=== PATIENT | male | born 1955 | race American Indian/Alaskan Native ===

== ENCOUNTER 2020-11-11 06:13 | Observation (INO) | payer OTHER ==
--- NOTE | 2020-11-05 13:38 | Anesthesia Consultation ---
Anesthesia Consult and Med Hx Date of service: 11/11/20 - Airway Anesthetic Teeth Evaluation: Dentures, Edentulous ROM Head & Neck: Adequate Mental/Hyoid Distance: Adequate Mallampati Class: Class II Intubation Access Assessment: Good - Pre-Operative Health Status ASA Pre-Surgery Classification: ASA2 Proposed Anesthetic Plan: General - Pulmonary Hx Smoking: Yes ( TEENAGER ONLY) Hx Asthma: No Hx Respiratory Symptoms: No (+2FS) COPD: No Hx Pneumonia: No - Cardiovascular System Hx Hypertension: No - Central Nervous System Hx Seizures: No Hx Psychiatric Problems: No - Gastrointestinal Hx Gastroesophageal Reflux Disease: No - Endocrine Hx End Stage Renal Disease: No Hx Liver Disease: No Hx Non-Insulin Dependent Diabetes: No Hx Thyroid Disease: No - Hematic Hx Sickle Cell Disease: No - Other Systems Hx Cancer: Yes (Prostatectomy 2012) Hx Obesity: No
[2020-11-05 13:53] LABS: Basophils % (Auto) 0.8 % (0.0-1.8); Eosinophils # (Auto) 0.2 K/mm3 (0.0-0.4); Eosinophils % (Auto) 4.2 % (0.0-4.3); Lymphocytes # (Auto) 1.6 K/mm3 (1.2-5.4); Mean Corpuscular HGB Conc 35 % (32-34); Mean Corpuscular Volume 91 fl (84-94); Monocytes # (Auto) 0.3 K/mm3 (0.0-0.8); Monocytes % (Auto) 6.8 % (0.0-7.3); Platelet Count 320 K/mm3 (140-440); Red Cell Distribution Width 13.7 % (13.2-15.2)
[2020-11-05 14:00] LABS: Hematocrit 51.6 % (35.5-45.6); Hemoglobin 18.2 gm/dl (11.8-15.2)
[2020-11-05 14:12] LABS: Alanine Aminotransferase 17 units/L (7-56); Albumin 4.2 g/dL (3.9-5); BUN/Creatinine Ratio 8; Blood Urea Nitrogen 8 mg/dL (9-20); Calcium 9.5 mg/dL (8.4-10.2); Hemolysis Index 32
[~2020-11-11 06:13] MED LIST: ACETAMINOPHEN 500 MG TAB PO NR; BACTERIOSTATIC SODIUM CHLORIDE 0.9% 30 ML VIAL INFILTRATI ONE; CELECOXIB 200 MG CAP PO NR; GABAPENTIN 300 MG CAP PO NR; MAGNESIUM OXIDE 400 MG TAB PO NR; MIDAZOLAM 2 MG/2 ML INJ IV NR
[2020-11-11] MEDS: LACTATED RINGERS 1,000 ML IV SCH ×3 (06:35→22:24)
[2020-11-11] MEDS ORDERED: GENTAMICIN 40 MG/ML VIAL 2 ML ONE (07:06)
[2020-11-11] MEDS ORDERED: rifAMPin 600 MG VIAL ONE (07:07)
[2020-11-11] MEDS ORDERED: SODIUM CHLORIDE 0.9% 500 ML 500 ML ONE (07:07)
[2020-11-11] MEDS ORDERED: SODIUM CHLORIDE 0.9% 100 ML ONE (07:07)
[2020-11-11] MEDS ORDERED: NEOMY 40 MG/POLYMYXIN B 200,000 UNITS/ML (GU) AMPULE IR ONE ×3 (07:07→09:00)
[2020-11-11] MEDS ORDERED: SODIUM CHLORIDE P/F VIAL 10 ML 20 ML ONE (07:10)
[2020-11-11] MEDS ORDERED: BUPIVACAINE/PF (0.5%) 5 MG/1 ML 30 ML VIAL INFILTRATI ONE ×2 (07:10→08:59)
[2020-11-11] MEDS ORDERED: HYDROmorphone 1 MG/1 ML INJ ONE (07:23)
[2020-11-11] MEDS ORDERED: LIDOCAINE MPF (2%) 20 MG/1 ML VIAL 5 ML ONE (07:24)
[2020-11-11] MEDS ORDERED: propofoL 200 MG/20 ML VIAL IV ONE (07:24)
--- NOTE | 2020-11-11 07:26 | Anesthesia Day of Surgery ---
Anesthesia Day of Surgery - Day of Surgery Patient Examined: Yes Patient H&P Reviewed: Yes Patient is NPO: Yes
[2020-11-11] MEDS ORDERED: GENTAMICIN/NS 80 MG/100 ML 100 ML IV SCH (07:30)
[2020-11-11] MEDS ORDERED: VANCOMYCIN/NS 1 GM/250 ML 1 GM/250 ML BAG IV NR (07:30)
[2020-11-11] MEDS ORDERED: HYDROmorphone 1 MG/1 ML INJ IV PRN (08:00)
[2020-11-11] MEDS ORDERED: ONDANSETRON 4 MG/2 ML INJ IV PRN (08:00)
[2020-11-11] MEDS ORDERED: SODIUM CHLORIDE 0.9% IRR 1,500 ML BOTTLE IR ONE (08:57)
[2020-11-11] MEDS ORDERED: SODIUM CHLORIDE 0.9% 100 ML IVPB IV ONE (08:58)
[2020-11-11] MEDS ORDERED: SODIUM CHLORIDE 0.9% 500 ML IVPB IRRIGATION ONE (08:58)
[2020-11-11] MEDS ORDERED: rifAMPin 600 MG VIAL IV ONE (08:59)
[2020-11-11] MEDS ORDERED: GENTAMICIN 40 MG/ML VIAL 2 ML IV ONE (09:23)
[2020-11-11] MEDS ORDERED: ONDANSETRON 4 MG/2 ML INJ ONE (09:48)
[2020-11-11] MEDS ORDERED: LACTATED RINGERS 1,000 ML ONE (09:48)
[2020-11-11] MEDS ORDERED: KETOROLAC 30 MG/1 ML INJ ONE (09:48)
--- NOTE | 2020-11-11 09:49 | Short Stay Summary ---
Short Stay Documentation Date of service: 11/11/20 - History H&P: obtained from office - Allergies and Medications Current Medications: Allergies No Known Allergies Allergy (Unverified 11/04/20 17:36) Home Medications Medication Instructions Recorded Confirmed Last Taken Type No Known Home Medications [No 09/21/13 11/04/20 Unknown History Reported Home Medications] Active Medications Acetaminophen (Acetaminophen 500 Mg Tab) 1,000 mg PO ONCE NR Stop: 11/11/20 20:00 Last Admin: 11/11/20 06:35 Dose: 1,000 mg Documented by: Celecoxib (Celecoxib 200 Mg Cap) 400 mg PO PREOP NR Stop: 11/11/20 20:00 Last Admin: 11/11/20 06:35 Dose: 400 mg Documented by: Gabapentin (Gabapentin 300 Mg Cap) 300 mg PO PREOP NR Stop: 11/11/20 20:00 Last Admin: 11/11/20 06:35 Dose: 300 mg Documented by: Hydromorphone HCl (Hydromorphone 1 Mg/1 Ml Inj) 0.5 mg IV Q10MIN PRN PRN Reason: Pain , Severe (7-10) Stop: 11/11/20 17:00 Lactated Ringer's (Lactated Ringers) 1,000 mls @ 125 mls/hr IV DIRECT JOSUE Last Admin: 11/11/20 06:35 Dose: 125 mls/hr Documented by: Vancomycin HCl (Vancomycin/Ns 1 Gm/250 Ml) 1 gm in 250 mls @ 167.007 mls/hr IV PREOP NR; Protocol Stop: 11/11/20 16:00 Last Admin: 11/11/20 07:25 Dose: 167.007 mls/hr Documented by: Gentamicin Sulfate/Sodium Chloride (Gentamicin/Ns 80 Mg/100 Ml) 100 mls @ 200 mls/hr IV ONCE JOSUE; Protocol Stop: 11/11/20 15:00 Magnesium Oxide (Magnesium Oxide 400 Mg Tab) 400 mg PO ONCE NR Stop: 11/11/20 20:00 Last Admin: 11/11/20 06:35 Dose: 400 mg Documented by: Midazolam HCl (Midazolam 2 Mg/2 Ml Inj) 2 mg IV PREOP NR Stop: 11/11/20 23:59 Last Admin: 11/11/20 07:43 Dose: 2 mg Documented by: Ondansetron HCl (Ondansetron 4 Mg/2 Ml Inj) 4 mg IV ONCE PRN PRN Reason: Nausea And Vomiting Stop: 11/11/20 17:00 - Brief post op/procedure progress note Date of procedure: 11/11/20 Pre-op diagnosis: ed Post-op diagnosis: same Procedure: ipp (coloplast 22cm), scrotalasty Anesthesia: GETA Surgeon: VAL CASTILLO Estimated blood loss: minimal Pathology: list (skin) Specimen disposition: to lab Condition: stable - Hospital course Hospital course: post op info on chart bactrim & norco on chart schumacher removed - Disposition Condition at discharge: Stable Short Stay Discharge Plan Follow up with: MARKY BRADSHAW MD [Primary Care Provider] - 7 Days
[2020-11-11] MEDS ORDERED: NALOXONE 0.4 MG/1 ML INJ IV PRN (10:00)
[2020-11-11] MEDS ORDERED: HYDROcodone/ACETAMINOPHEN 5-325 MG TAB PO PRN (10:00)
--- NOTE | 2020-11-11 11:00 | Operative Report ---
PREOPERATIVE DIAGNOSIS: Erectile dysfunction. POSTOPERATIVE DIAGNOSIS: Erectile dysfunction, redundant scrotal skin. PROCEDURES: 1. Insertion of inflatable penile prosthesis (Coloplast Titan 22 cm). 2. Pharmacologic injection of corporal bodies. 3. Scrotoplasty. SURGEON: Lalo Schmidt MD GLOST KILN OPERATOR: Senia Cabrera. ANESTHESIA: General. ESTIMATED BLOOD LOSS: Minimal. FLUIDS: Crystalloid. COMPLICATIONS: No complications. INDICATIONS: This patient is a 65-year-old gentleman with a history of prostate cancer in the remote past, status post robotic prostatectomy. He has done well except for persistent erectile dysfunction, despite medical management. He reviewed the literature and wants to proceed with implant. Risks, benefits, and complications were explained. DESCRIPTION OF PROCEDURE: The patient was taken to the operative suite, placed in a supine position. After adequate general anesthesia, he was prepped and draped in a sterile fashion. Catalan catheter was placed on the operative field. A 60 mL of 0.25% Marcaine was injected into the corporal body. No plaque. Mild curvature to the left. Penoscrotal incision was made with Bovie. Sharp dissection was taken down to the corporal bodies. Metal [place] retractor was used for exposure. A 2-0 Vicryl was placed in the corporal bodies. Corporotomies were made bilaterally. Gentle dilation with the Amarilys and measurements were taken for a total of 22 cm bilaterally, therefore a 22 cm Titan implant was used with 125 mL reservoir. [place] was prepped, placed in the retropubic space via the right external ring. A 100 mL was placed in the reservoir. The device was prepped as well as did an irrigation and placed into the corporal bodies without difficulty. These corporotomies were closed over the cylinders using 2-0 Vicryl in a running fashion. Adequate seating could be appreciated. Cycling of the cylinders revealed an excellent cosmetic appearance. The reservoir was connected to the cylinders with the quick click connection system, cycled again adequate erection. Pump was placed in the dependent portion of the scrotum. 2-0 Vicryl was used to secure the pump in a dependent portion using a pursestring stitch followed by closing the dartos layer with 2-0 Vicryl in a running fashion. The dog ears were trimmed on the skin and therefore scrotoplasty was performed. Skin was closed with 3-0 Vicryl in interrupted fashion. Collodion, Xeroform gauze, and mummy wrap was placed. The patient tolerated the procedure well and was extubated and taken to recovery room. Senia Cabrera was present throughout the procedure to assist at the bedside. JOB# [id number] [facility]
--- NOTE | 2020-11-11 12:10 | Post Anesthesia Evaluation ---
- Post Anesthesia Evaluation Patient Participated: Yes Airway Patent: Yes Stable Respiratory Function: Yes Nausea/Vomiting: No Temp > 96.8F: Yes Pain Manageable: Yes Adequeate Hydration: Yes Anesthesia Complications: No
[2020-11-11] MEDS: MORPHINE 2 MG/1 ML INJ IV PRN ×3 (13:57→22:15)
[2020-11-11] MEDS ORDERED: ZOLPIDEM 5 MG TAB PO PRN (22:00)
[2020-11-12] MEDS: MORPHINE 2 MG/1 ML INJ IV PRN ×3 (02:08→12:25)
[2020-11-12] MEDS: LACTATED RINGERS 1,000 ML IV SCH (05:56)
[2020-11-12 07:55] VITALS: BP 123/79
== END 2020-11-12 16:22 | disposition home or self-care (01) ==
LOC: OR 06:13 → 3B-SURG 09:49
PROVIDERS: ADMIT Urology; ATTEND Urology
DX: N52.9 Male erectile dysfunction, unspecified (principal)
CPT/HCPCS: 36415; 54401; 55180; 80053; 85025; 88302; 96361; 96365; 96367; 96375; 96376; C1813; G0378; J1170; J1580; J1885; J1956; J2250; J2270; J2405; J2704; J3370; J3490; J7040; J7120; 88305